=== PATIENT | male | born 1950 | race Caucasian/White ===

== ENCOUNTER 2018-06-24 19:00 | Emergency (ER) | payer OTHER ==
[~2018-06-24] VITALS: Ht 180.3 cm; Wt 76.2 kg
[2018-06-24 19:15] VITALS: BP 108/51
== END 2018-06-24 20:02 | disposition left against medical advice (07) ==
LOC: ER 19:00
DX: R53.1 Weakness (principal); Z53.21 Procedure and treatment not carried out due to patient leaving prior to being seen by health care provider
CPT/HCPCS: 93005

== ENCOUNTER 2018-12-02 13:59 | Emergency (ER) | payer OTHER ==
[~2018-12-02] VITALS: Ht 177.8 cm; Wt 90.7 kg
[2018-12-02] MEDS ORDERED: TETANUS-DIPTH-ACEL PERTUSSIS 0.5ML SYRG IM ONE (15:15)
[2018-12-02 17:07] VITALS: BP 123/69
[2018-12-02] MEDS ORDERED: LIDOCAINE 1% HCL (LOCAL ANESTH.) INJ 20ML MDV ONE (17:13)
[2018-12-02] MEDS ORDERED: LIDOCAINE 1% HCL (LOCAL ANESTH.) INJ 20ML MDV IJ ONE (17:30)
[2018-12-02] MEDS ORDERED: NEOMYCIN-BACITRACIN-POLYM UNITDOSE PKG TOP OINT TOP ONE (18:00)
== END 2018-12-02 18:13 | disposition home or self-care (01) ==
LOC: EDUNIT# 13:59 → EDBD 13:59 → ER 14:06
DX: S01.81XA Laceration without foreign body of other part of head, initial encounter (principal); W01.0XXA Fall on same level from slipping, tripping and stumbling without subsequent striking against object, initial encounter; Y93.01 Activity, walking, marching and hiking; Y92.480 Sidewalk as the place of occurrence of the external cause; Y99.8 Other external cause status
CPT/HCPCS: 12052; 70450; 71045; 82962; 90471; 90715; 94761; 99284; J2001

== ENCOUNTER 2019-01-10 16:00 | Emergency (ER) | payer OTHER ==
[~2019-01-10] VITALS: Ht 180.3 cm; Wt 86.2 kg
[2019-01-10 19:30] VITALS: BP 108/62
== END 2019-01-10 20:21 | disposition home or self-care (01) ==
LOC: EDBD 16:00 → ER 16:03
DX: S09.8XXA Other specified injuries of head, initial encounter (principal); M79.662 Pain in left lower leg; F17.210 Nicotine dependence, cigarettes, uncomplicated; V43.52XA Car driver injured in collision with other type car in traffic accident, initial encounter; Y93.89 Activity, other specified; Y92.488 Other paved roadways as the place of occurrence of the external cause; Y99.8 Other external cause status
CPT/HCPCS: 70450; 71250; 72125; 72131; 73590; 74176

== ENCOUNTER 2021-07-06 11:56 | Inpatient (IN) | payer OTHER ==
[~2021-07-06] VITALS: Ht 180.3 cm; Wt 74.5 kg
[2021-07-06] MEDS ORDERED: MORPHINE SULFATE 4 MG/ML SYR/VIAL IV ONE (12:00)
[2021-07-06] MEDS ORDERED: ONDANSETRON HCL 4 MG/2 ML VIAL IM ONE (12:00)
[2021-07-06 12:23] LABS: Basophils # (auto) 0.1 10 ^3/uL (0-0.2); Basophils % (auto) 0.5 % (0.0-2.0); Eosinophils # (auto) 0.1 10 ^3/uL (0-0.8); Eosinophils % (auto) 0.9 % (0.0-7.0); Hematocrit 38.5 % (41.0-53.0); Hemoglobin 12.9 g/dL (13.5-17.5); Lymphocytes # (auto) 0.7 10 ^3/uL (0.4-5.4); Lymphocytes % (auto) 7.3 % (10.0-50.0); Mean Corpuscular Hemoglobin 28.1 pg (28.0-32.0); Mean Corpuscular Hgb Conc. 33.6 g/dL (32.0-36.0); Mean Corpuscular Volume 83.7 fL (80.0-100.0); Monocytes # (auto) 0.6 10 ^3/uL (0-1.3); Monocytes % (auto) 6.5 % (0.0-12.0); Neutrophils # (auto) 7.8 10 ^3/uL (1.6-8.6); Neutrophils % (auto) 84.8 % (37.0-80.0); Red Cell Distribution Width 15.7 % (11.8-14.3); White Blood Cell 9.2 10^3/uL (4.4-10.8)
[2021-07-06 12:40] LABS: Albumin 2.4 g/dL (3.4-5.0); Calcium 9.2 mg/dL (8.5-10.1); Potassium 3.3 mmol/L (3.5-5.1)
[2021-07-06 12:44] LABS: BUN/Creatinine Ratio 20.4; Bilirubin, Total 0.4 mg/dL (0.2-1.0); Total Protein 8.1 g/dL (6.4-8.2)
[2021-07-06] MEDS ORDERED: POTASSIUM CHL 20 Meq TABLET PO ONE (16:30)
[2021-07-06] MEDS ORDERED: ONDANSETRON HCL 4 MG/2 ML VIAL IV PRN (16:30)
[2021-07-06] MEDS ORDERED: HYDROcodone-ACET 5/325MG TAB PO PRN (16:30)
[2021-07-06] MEDS ORDERED: MULTIPLE VITAMINS W/ MINERALS TAB PO ONE (16:30)
[2021-07-06 18:11] LABS: Folate (Folic Acid) 14.29 ng/mL (5.38-24)
[2021-07-06] MEDS: TAMSULOSIN HYDROCHLORIDE 0.4 MG CAP PO SCH (19:00)
[2021-07-07 02:43] LABS: Urine Bacteria NONE SEEN /hpf (None Seen); Urine Blood Negative /uL (Negative); Urine Mucus FEW (None Seen); Urine Specific Gravity 1.018 (1.001-1.035); Urine WBC 1 /hpf (0 - 3)
[2021-07-07 07:06] LABS: Basophils # (auto) 0.1 10 ^3/uL (0-0.2); Basophils % (auto) 0.8 % (0.0-2.0); Eosinophils # (auto) 0.1 10 ^3/uL (0-0.8); Eosinophils % (auto) 0.9 % (0.0-7.0); Hematocrit 38.8 % (41.0-53.0); Hemoglobin 12.7 g/dL (13.5-17.5); Lymphocytes # (auto) 0.7 10 ^3/uL (0.4-5.4); Lymphocytes % (auto) 8.6 % (10.0-50.0); Mean Corpuscular Hemoglobin 28.5 pg (28.0-32.0); Mean Corpuscular Hgb Conc. 32.8 g/dL (32.0-36.0); Mean Corpuscular Volume 86.7 fL (80.0-100.0); Monocytes # (auto) 0.7 10 ^3/uL (0-1.3); Monocytes % (auto) 9.3 % (0.0-12.0); Neutrophils # (auto) 6.3 10 ^3/uL (1.6-8.6); Neutrophils % (auto) 80.4 % (37.0-80.0); Red Blood Cells 4.48 10^6/uL (4.5-5.90); Red Cell Distribution Width 15.8 % (11.8-14.3); White Blood Cell 7.8 10^3/uL (4.4-10.8)
[2021-07-07 07:08] LABS: Potassium 3.8 mmol/L (3.5-5.1)
[2021-07-07 07:12] LABS: BUN/Creatinine Ratio 23.3
[2021-07-07] MEDS: ASPirin 81 mg TAB PO SCH (10:32)
[2021-07-07] MEDS: MULTIPLE VITAMINS W/ MINERALS TAB PO SCH (10:33)
[2021-07-07] MEDS: MORPHINE SULFATE INJECTION 2 MG/ML SYRG IV PRN ×2 (10:33→20:40)
[2021-07-07] MEDS: HYDROcodone-ACET 10/325MG TAB PO PRN (12:21)
[2021-07-07] MEDS ORDERED: GADOTERATE MEG 10 MMOL/20ml INJ (0.5MMOL/ml) IV ONE (13:59)
[2021-07-07] MEDS: GABAPENTIN 100 MG CAP PO SCH ×2 (14:23→22:37)
[2021-07-07 17:21] VITALS: BP 134/82
[2021-07-07] MEDS ORDERED: HYDROcodone-ACET 5/325MG TAB PO PRN (17:30)
[2021-07-07] MEDS: TAMSULOSIN HYDROCHLORIDE 0.4 MG CAP PO SCH (19:21)
[2021-07-07 22:00] VITALS: BP 117/74
[2021-07-07] MEDS: DexAMETHasone SOD PHOS 4 MG/1ML SDV INJ IV SCH (22:36)
[2021-07-08 05:00] VITALS: BP 120/66
[2021-07-08] MEDS: DexAMETHasone SOD PHOS 4 MG/1ML SDV INJ IV SCH ×3 (07:01→22:13)
[2021-07-08] MEDS: GABAPENTIN 100 MG CAP PO SCH ×3 (07:01→22:10)
[2021-07-08 09:00] VITALS: BP 101/50
[2021-07-08] MEDS ORDERED: LACTULOSE 20Gm/30ML SOLN PO ONE (09:30)
[2021-07-08] MEDS: TRAMETINIB 2 MG PO SCH (09:51)
[2021-07-08] MEDS: DABRAFENIB 75 MG PO SCH ×2 (09:51→22:13)
[2021-07-08] MEDS: ASPirin 81 mg TAB PO SCH (09:51)
[2021-07-08] MEDS: MULTIPLE VITAMINS W/ MINERALS TAB PO SCH (09:52)
[2021-07-08] MEDS: DOXYCYCLINE 100 MG TAB/CAP PO SCH ×2 (09:53→22:10)
[2021-07-08] MEDS ORDERED: PATIENTS OWN MEDICATION PO SCH ×3 (10:00)
[2021-07-08 13:00] VITALS: BP 121/73
[2021-07-08 16:40] VITALS: BP 123/68
[2021-07-08] MEDS: MORPHINE SULFATE INJECTION 2 MG/ML SYRG IV PRN (16:59)
[2021-07-08] MEDS: TAMSULOSIN HYDROCHLORIDE 0.4 MG CAP PO SCH (19:03)
[2021-07-08 20:00] VITALS: BP 110/69
[2021-07-09 04:30] VITALS: BP 160/57
[2021-07-09] MEDS: GABAPENTIN 100 MG CAP PO SCH ×3 (06:07→21:23)
[2021-07-09] MEDS: DexAMETHasone SOD PHOS 4 MG/1ML SDV INJ IV SCH (06:07)
[2021-07-09 08:00] VITALS: BP 132/82
[2021-07-09] MEDS: DABRAFENIB 75 MG PO SCH ×2 (10:41→21:23)
[2021-07-09] MEDS: TRAMETINIB 2 MG PO SCH (10:41)
[2021-07-09] MEDS: ASPirin 81 mg TAB PO SCH (10:41)
[2021-07-09] MEDS: DOXYCYCLINE 100 MG TAB/CAP PO SCH ×2 (10:42→21:24)
[2021-07-09] MEDS: MULTIPLE VITAMINS W/ MINERALS TAB PO SCH (10:42)
[2021-07-09] MEDS: MORPHINE SULFATE INJECTION 2 MG/ML SYRG IV PRN ×2 (10:53→21:33)
[2021-07-09 12:00] VITALS: BP 117/71
[2021-07-09 16:00] VITALS: BP 125/75
[2021-07-09] MEDS: TAMSULOSIN HYDROCHLORIDE 0.4 MG CAP PO SCH (18:45)
[2021-07-09] MEDS: HYDROcodone-ACET 10/325MG TAB PO PRN (20:07)
[2021-07-09] MEDS: DexAMETHasone 4 MG TAB PO SCH (21:23)
[2021-07-09 22:00] VITALS: BP 120/65
[2021-07-10] MEDS: MORPHINE SULFATE INJECTION 2 MG/ML SYRG IV PRN ×3 (04:03→22:18)
[2021-07-10 05:00] VITALS: BP 135/89
[2021-07-10] MEDS: GABAPENTIN 100 MG CAP PO SCH ×3 (06:31→22:08)
[2021-07-10] MEDS: HYDROcodone-ACET 10/325MG TAB PO PRN ×2 (06:32→17:59)
[2021-07-10 09:00] VITALS: BP 130/62
[2021-07-10] MEDS ORDERED: MIDAZOLAM HCL 2MG/2ML 2ml VIAL (1mg/ml) ONE (09:16)
[2021-07-10] MEDS ORDERED: fentaNYL CITRATE 100 MCG/2 ML VL ONE (09:17)
[2021-07-10] MEDS ORDERED: LIDOCAINE 2%HCL (LOCAL ANESTH.) INJ 20ML MDV ONE (09:19)
[2021-07-10] MEDS: DexAMETHasone 4 MG TAB PO SCH ×2 (11:26→22:08)
[2021-07-10] MEDS: TRAMETINIB 2 MG PO SCH (11:26)
[2021-07-10] MEDS: ASPirin 81 mg TAB PO SCH (11:26)
[2021-07-10] MEDS: DABRAFENIB 75 MG PO SCH ×2 (11:26→22:16)
[2021-07-10] MEDS: DOXYCYCLINE 100 MG TAB/CAP PO SCH ×2 (11:27→22:08)
[2021-07-10] MEDS: MULTIPLE VITAMINS W/ MINERALS TAB PO SCH (11:27)
[2021-07-10 13:00] VITALS: BP 128/75
[2021-07-10 17:00] VITALS: BP 166/98
[2021-07-10] MEDS: TAMSULOSIN HYDROCHLORIDE 0.4 MG CAP PO SCH (17:58)
[2021-07-10 22:00] VITALS: BP 120/69
[2021-07-11] MEDS: HYDROcodone-ACET 10/325MG TAB PO PRN ×2 (02:45→12:54)
[2021-07-11 05:00] VITALS: BP 117/71
[2021-07-11] MEDS: GABAPENTIN 100 MG CAP PO SCH ×3 (06:06→23:11)
[2021-07-11 09:00] VITALS: BP 162/82
[2021-07-11] MEDS: MORPHINE SULFATE INJECTION 2 MG/ML SYRG IV PRN ×3 (10:06→23:12)
[2021-07-11] MEDS: MULTIPLE VITAMINS W/ MINERALS TAB PO SCH (10:06)
[2021-07-11] MEDS: ASPirin 81 mg TAB PO SCH (10:07)
[2021-07-11] MEDS: DOXYCYCLINE 100 MG TAB/CAP PO SCH ×2 (10:07→23:12)
[2021-07-11] MEDS: DexAMETHasone 4 MG TAB PO SCH ×2 (10:07→23:11)
[2021-07-11] MEDS: TRAMETINIB 2 MG PO SCH (10:11)
[2021-07-11] MEDS: DABRAFENIB 75 MG PO SCH ×2 (10:13→22:00)
[2021-07-11 13:00] VITALS: BP 144/66
[2021-07-11 17:00] VITALS: BP 124/75
[2021-07-11] MEDS: TAMSULOSIN HYDROCHLORIDE 0.4 MG CAP PO SCH (18:47)
[2021-07-11 22:00] VITALS: BP 150/81
[2021-07-12] MEDS: HYDROcodone-ACET 10/325MG TAB PO PRN ×2 (04:53→22:08)
[2021-07-12 05:00] VITALS: BP 130/81
[2021-07-12] MEDS: GABAPENTIN 100 MG CAP PO SCH ×3 (06:06→22:07)
[2021-07-12 09:00] VITALS: BP 144/73
[2021-07-12] MEDS: DexAMETHasone 4 MG TAB PO SCH ×2 (09:25→22:07)
[2021-07-12] MEDS: ASPirin 81 mg TAB PO SCH (09:25)
[2021-07-12] MEDS: MULTIPLE VITAMINS W/ MINERALS TAB PO SCH (09:25)
[2021-07-12] MEDS: DOXYCYCLINE 100 MG TAB/CAP PO SCH ×2 (09:26→22:07)
[2021-07-12] MEDS: MORPHINE SULFATE INJECTION 2 MG/ML SYRG IV PRN ×2 (12:44→20:03)
[2021-07-12 13:00] VITALS: BP 137/84
[2021-07-12] MEDS: TRAMETINIB 2 MG PO SCH (13:30)
[2021-07-12] MEDS: DABRAFENIB 75 MG PO SCH ×2 (13:30→22:07)
[2021-07-12] MEDS: TAMSULOSIN HYDROCHLORIDE 0.4 MG CAP PO SCH (16:13)
[2021-07-12 17:00] VITALS: BP 133/78
[2021-07-12 18:00] VITALS: BP 133/78
[2021-07-12 22:18] VITALS: BP 148/89
[2021-07-13] MEDS: MORPHINE SULFATE INJECTION 2 MG/ML SYRG IV PRN ×4 (03:59→19:58)
[2021-07-13 05:01] VITALS: BP 147/79
[2021-07-13] MEDS: GABAPENTIN 100 MG CAP PO SCH ×3 (06:34→22:03)
[2021-07-13 09:00] VITALS: BP 151/77
[2021-07-13] MEDS: ASPirin 81 mg TAB PO SCH (09:02)
[2021-07-13] MEDS: MULTIPLE VITAMINS W/ MINERALS TAB PO SCH (09:02)
[2021-07-13] MEDS: DexAMETHasone 4 MG TAB PO SCH ×2 (09:02→18:47)
[2021-07-13] MEDS: DOXYCYCLINE 100 MG TAB/CAP PO SCH ×2 (09:03→22:03)
[2021-07-13] MEDS: TRAMETINIB 2 MG PO SCH (09:46)
[2021-07-13] MEDS: DABRAFENIB 75 MG PO SCH ×2 (09:46→22:03)
[2021-07-13 13:00] VITALS: BP 146/74
[2021-07-13 13:30] VITALS: BP 127/73
[2021-07-13 16:42] VITALS: BP 127/73
[2021-07-13] MEDS: TAMSULOSIN HYDROCHLORIDE 0.4 MG CAP PO SCH (17:26)
[2021-07-13 22:00] VITALS: BP 136/90
[2021-07-14] MEDS: MORPHINE SULFATE INJECTION 2 MG/ML SYRG IV PRN ×4 (00:07→22:27)
[2021-07-14 05:00] VITALS: BP 133/74
[2021-07-14] MEDS: GABAPENTIN 100 MG CAP PO SCH ×3 (06:00→21:30)
[2021-07-14] MEDS: DexAMETHasone 4 MG TAB PO SCH ×2 (08:00→18:39)
[2021-07-14] MEDS: DABRAFENIB 75 MG PO SCH ×2 (08:00→21:30)
[2021-07-14] MEDS: ASPirin 81 mg TAB PO SCH (08:00)
[2021-07-14] MEDS: DOXYCYCLINE 100 MG TAB/CAP PO SCH ×2 (08:01→21:30)
[2021-07-14] MEDS: TRAMETINIB 2 MG PO SCH (08:01)
[2021-07-14] MEDS: MULTIPLE VITAMINS W/ MINERALS TAB PO SCH (08:01)
[2021-07-14 09:00] VITALS: BP 107/62
[2021-07-14] MEDS: HYDROcodone-ACET 10/325MG TAB PO PRN (12:01)
[2021-07-14 13:00] VITALS: BP 120/70
[2021-07-14 17:00] VITALS: BP 131/82
[2021-07-14 21:57] VITALS: BP 122/80
[2021-07-15 05:07] VITALS: BP 127/73
[2021-07-15] MEDS: GABAPENTIN 100 MG CAP PO SCH ×3 (06:00→22:10)
[2021-07-15] MEDS: ASPirin 81 mg TAB PO SCH (08:25)
[2021-07-15] MEDS: MULTIPLE VITAMINS W/ MINERALS TAB PO SCH (08:25)
[2021-07-15] MEDS: HYDROcodone-ACET 10/325MG TAB PO PRN (08:26)
[2021-07-15] MEDS: DOXYCYCLINE 100 MG TAB/CAP PO SCH (08:26)
[2021-07-15] MEDS: DABRAFENIB 75 MG PO SCH ×2 (08:27→22:10)
[2021-07-15] MEDS: DexAMETHasone 4 MG TAB PO SCH ×2 (08:28→17:25)
[2021-07-15] MEDS: TRAMETINIB 2 MG PO SCH (08:41)
[2021-07-15 09:00] VITALS: BP 140/80
[2021-07-15 13:00] VITALS: BP 113/57
[2021-07-15] MEDS: MORPHINE SULFATE INJECTION 2 MG/ML SYRG IV PRN ×2 (14:33→22:25)
[2021-07-15 17:00] VITALS: BP 123/80
[2021-07-15] MEDS: TAMSULOSIN HYDROCHLORIDE 0.4 MG CAP PO SCH (17:25)
[2021-07-15 22:00] VITALS: BP 117/81
[2021-07-16 05:00] VITALS: BP 118/75
[2021-07-16] MEDS: GABAPENTIN 100 MG CAP PO SCH ×2 (06:20→14:45)
[2021-07-16] MEDS: MULTIPLE VITAMINS W/ MINERALS TAB PO SCH (08:49)
[2021-07-16] MEDS: ASPirin 81 mg TAB PO SCH (08:49)
[2021-07-16] MEDS: DexAMETHasone 4 MG TAB PO SCH ×2 (08:49→18:26)
[2021-07-16 09:00] VITALS: BP 137/80
[2021-07-16] MEDS: DABRAFENIB 75 MG PO SCH (10:30)
[2021-07-16] MEDS: TRAMETINIB 2 MG PO SCH (10:30)
[2021-07-16] MEDS ORDERED: IOHEXOL 300 MG/ML 100ML BOTTLE IJ ONE (10:35)
[2021-07-16 13:00] VITALS: BP 112/75
[2021-07-16] MEDS: HYDROcodone-ACET 10/325MG TAB PO PRN (15:30)
[2021-07-16 17:00] VITALS: BP 129/83
[2021-07-16] MEDS: TAMSULOSIN HYDROCHLORIDE 0.4 MG CAP PO SCH (18:26)
== END 2021-07-16 20:25 | DRG 478 ==
LOC: EDBD 11:56 → ER 11:56 → OVERFLOW 16:25 → CENTRAL 07-07 16:49
PROVIDERS: ADMIT Internal Medicine; ATTEND Internal Medicine
PROC: 0QB03ZX Excision of Lumbar Vertebra, Percutaneous Approach, Diagnostic (ICD-10-PCS; principal; 2021-07-10)
DX: C79.51 Secondary malignant neoplasm of bone (principal); E44.0 Moderate protein-calorie malnutrition; G82.20 Paraplegia, unspecified; C79.52 Secondary malignant neoplasm of bone marrow; C43.62 Malignant melanoma of left upper limb, including shoulder; M54.9 Dorsalgia, unspecified; E87.6 Hypokalemia; R33.9 Retention of urine, unspecified; E78.5 Hyperlipidemia, unspecified; F17.200 Nicotine dependence, unspecified, uncomplicated; R97.20 Elevated prostate specific antigen [PSA]; G89.29 Other chronic pain; Z20.822 Contact with and (suspected) exposure to COVID-19; K57.30 Diverticulosis of large intestine without perforation or abscess without bleeding; M48.061 Spinal stenosis, lumbar region without neurogenic claudication; N28.1 Cyst of kidney, acquired; N40.1 Benign prostatic hyperplasia with lower urinary tract symptoms; Z79.899 Other long term (current) drug therapy; Z80.9 Family history of malignant neoplasm, unspecified; Z82.49 Family history of ischemic heart disease and other diseases of the circulatory system; Z87.442 Personal history of urinary calculi; Z86.73 Personal history of transient ischemic attack (TIA), and cerebral infarction without residual deficits; Z68.22 Body mass index [BMI] 22.0-22.9, adult
CPT/HCPCS: 10022; 36415; 71260; 72100; 72131; 72158; 74176; 74177; 77012; 80048; 80053; 81001; 82607; 82746; 84154; 84443; 85025; 87426; 93005; 97110; 97116; 97163; 97530; G0378; J1100; J2250; J2405